=== PATIENT | male | born 1970 | race Caucasian/White ===

== ENCOUNTER 2022-02-06 10:05 | Emergency (ER) | payer BC, SELFPAY ==
[2022-02-06 10:26] VITALS: BP 147/95; PULSE 96; RESP 18; TEMP 36.6; O2SAT 95; BMI 33.2
--- NOTE | 2022-02-06 11:06 | ED.NAVMDI ---
HPI - Nausea/Vomiting/Diarrhea General Chief complaint: Diarrhea Stated complaint: poss food poisoning Time Seen by Provider: 02/06/22 10:42 History of Present Illness HPI Narrative: 51-year-old man presenting to the emergency department with concern of diarrhea and hematochezia. He believes he had a burger from [employer] 5 days ago that just did not look right. That evening then started having a great deal of diarrhea. He does have some abdominal pain and cramping actually says settled by alcohol. Pain is more in the across the upper abdomen. Diarrhea has continued 10-15 times a day with blood starting last night. Today actually forming clots in the stool. Has not limited to light food intake having had some heavy meals, meat in the interim. He is not reporting feeling lightheaded or short of breath. He has not had a fever. No exposure to illness otherwise. No recent antibiotics. Does have a history of alcohol abuse and has gone through treatment with extensive period of sobriety until he began drinking again about 6 months ago to ease some work stress. He realized more of a problem when he would go to work with a couple of beers to have at lunch. He does enjoys beer and making grilling/smoking/crafting quality food. Before was hard liquor. Describing himself as generally happy and avoiding conflict, he no longer attends AA as was not able to find a positive and peaceful group locally apparently. He would like some help with his alcohol use now. He is noting that is starting to get the shakes. Had a few beers this morning to settle things down. Denies a history of esophageal varices, or hemorrhoids. Does have a history of GERD again beer actually seems to calm this down as well. He takes a proton pump inhibitor. Other than GERD and acute issue, does not describe a longer history of bowel problems. Related Data Home Medications Medication Instructions Recorded Confirmed omeprazole 20 mg tablet,delayed 20 mg PO DAILY 02/06/22 02/06/22 release Allergies Allergy/AdvReac Type Severity Reaction Status Date / Time No Known Drug Allergies Allergy Verified 02/06/22 10:32 Review of Systems Status of ROS: Reports: 10 or more systems reviewed and unremarkable except as noted in History and below PFSH PFS Social History Smoking Status: Unknown if ever smoked How often do you have a drink containing alcohol: 2-3 times a week AUDIT-C Alcohol total score: 3 Non-prescribed substance use: denies use Exam Narrative: Exam Narrative: Very positive. Of good energy. Breathing easily. cn 2 - 12 intact. appropriately casually groomed. oropharynx hyperemic c/w nicotine use. dentition in good repair. Moving all extremities without difficulty. No extremity edema. Transitions without difficulty. no apparent tremor. Skin warm and dry. no apparent rash. Lungs are clear Cardiovascular with elevated rate. regular rhythm. no mrg Abdomen overweight with normoactive bs. Diffusely mildly tender. Const: Vital Signs, click to edit/add: Vital Signs - 24 hr 02/06/22 10:26 Temperature 97.9 F Pulse Rate [Right Pulse Oximeter] 96 Respiratory Rate 18 Blood Pressure [Le ft Upper Arm] 147/95 H Pulse Oximetry 95 Oxygen Delivery Me thod Room Air Documenting provider has reviewed patient's vital signs: yes Course Course Hospital Course: IV initiated. Normal saline. Reevaluation(s) Reevaluation #1: Stool sample collected. Appears to be a gazpacho Reevaluation #2: notes that feels better since iv hydration Vital Signs Vital signs: Initial Vital Signs Temperature 97.9 F 02/06/22 10:26 Temperature Source Temporal Artery Scan 02/06/22 10:26 Pulse Rate 96 02/06/22 10:26 Respiratory Rate 18 02/06/22 10:26 Blood Pressure 147/95 H 02/06/22 10:26 Blood Pressure Mean 112 02/06/22 10:26 Blood Pressure Position Standing 02/06/22 10:26 Pulse Oximetry 95 02/06/22 10:26 Oxygen Delivery Method 02/06/22 10:26 Vital Signs Temperature 97.9 F 02/06/22 10:26 Pulse Rate 96 02/06/22 10:26 Respiratory Rate 18 02/06/22 10:26 Blood Pressure 147/95 H 02/06/22 10:26 Pulse Oximetry 95 02/06/22 10:26 Oxygen Delivery Method 02/06/22 10:26 Temperature 97.9 F 02/06/22 13:19 Pulse Rate 72 02/06/22 13:19 Respiratory Rate 12 02/06/22 13:19 Blood Pressure 147/95 H 02/06/22 13:19 Pulse Oximetry 95 02/06/22 13:01 Oxygen Delivery Method 02/06/22 10:26 MDM - Nausea/Vomiting/Diarrhea MDM Narrative Medical decision making narrative: clearly with blood in stool. not discrete blood - mixed with stool to be foamy-pink suspect infectious enterocolitis. seems story/exam inconsistent hemorrhoidal bleed, ischemic colitis, diverticulitis. no long-term hx of bowel sxs c/w inflammatory/rheum bowel disorder. allergic? nl wbc and platelets and crp reassuring elevated transaminases c/w etoh and/or fatty liver. deferring imaging at this point. laboratory stool analysis pending Lab Data Attestation: I reviewed the patient's lab results. Labs: Lab Results 02/06/22 02/06/22 02/06/22 Range/Units 11:24 11:30 11:30 WBC 7.54 (4.50-11.00) K/uL RBC 5.10 (4.30-5.90) m/uL Hgb 15.8 (13.5-17.5) gm/dL Hct 46.4 (37.0-53.0) % MCV 91 (80-100) fL MCH 31 (26-34) pg MCHC 34 (32-36) gm/dL RDW Coeff of [place] 12.1 (11.5-15.5) % Plt Count 276 (140-440) K/uL Neut % (Auto) 68.0 (42.0-72.0) % Lymph % (Auto) 21.4 (20-44) % [place] % (Auto) 8.5 (0.0-11.0) % Eos % (Auto) 0.8 (0.0-7.0) % Baso % (Auto) 0.9 (0.0-3.0) % Neut # (Auto) 5.13 (1.7-7.0) K/uL Lymph # (Auto) 1.61 (0.90-2.90) K/uL [place] # (Auto) 0.60 (0.00-0.90) K/UL Eos # (Auto) 0.06 (0.00-0.50) K/uL Baso # (Auto) 0.07 (0.00-0.30) K/uL Abs Immat Gran (auto) 0.03 (0.00-0.30) K/uL Sodium 137 (135-149) mmol/L Potassium 4.2 (3.6-5.1) mmol/L Chloride 103 (96-114) mmol/L Carbon Dioxide 20 (20-32) mmol/L BUN 9 (5-24) mg/dL Creatinine 0.8 (0.5-1.5) mg/dL Estimated Creat Clear 122.60 Estimated GFR 108 ml/min Glucose 107 (60-115) mg/dL Calcium 9.1 (8.4-10.6) mg/dL Total Bilirubin 0.8 (0.1-1.5) mg/dL Direct Bilirubin 0.3 (0.0-0.5) mg/dL AST 97 H (12-35) U/L ALT 104 H (4-50) U/L Alkaline Phosphatase 88 (40-150) U/L C-Reactive Protein < 0.5 L (0.5-1.0) mg/dL Total Protein 8.3 (6.0-8.3) g/dL Albumin 5.1 H (3.3-5.0) g/dL Lipase 125 (23-300) U/L Stl C.difficile Tox PCR Negative (Negative) Ethyl Alcohol 0.17 H (0.01-0.03) % St C. diff Tox Epid 027 PRESUMPTIVE NEGATIVE (Negative) SARS-CoV-2 (PCR) (Negative) 02/06/22 02/06/22 Range/Units 11:30 11:30 WBC (4.50-11.00) K/uL RBC (4.30-5.90) m/uL Hgb (13.5-17.5) gm/dL Hct (37.0-53.0) % MCV (80-100) fL MCH (26-34) pg MCHC (32-36) gm/dL RDW Coeff of [place] (11.5-15.5) % Plt Count (140-440) K/uL Neut % (Auto) (42.0-72.0) % Lymph % (Auto) (20-44) % [place] % (Auto) (0.0-11.0) % Eos % (Auto) (0.0-7.0) % Baso % (Auto) (0.0-3.0) % Neut # (Auto) (1.7-7.0) K/uL Lymph # (Auto) (0.90-2.90) K/uL [place] # (Auto) (0.00-0.90) K/UL Eos # (Auto) (0.00-0.50) K/uL Baso # (Auto) (0.00-0.30) K/uL Abs Immat Gran (auto) (0.00-0.30) K/uL Sodium (135-149) mmol/L Potassium (3.6-5.1) mmol/L Chloride (96-114) mmol/L Carbon Dioxide (20-32) mmol/L BUN (5-24) mg/dL Creatinine (0.5-1.5) mg/dL Estimated Creat Clear Estimated GFR ml/min Glucose (60-115) mg/dL Calcium (8.4-10.6) mg/dL Total Bilirubin Cancelled (0.1-1.5) mg/dL Direct Bilirubin Cancelled (0.0-0.5) mg/dL AST Cancelled (12-35) U/L ALT Cancelled (4-50) U/L Alkaline Phosphatase Cancelled (40-150) U/L C-Reactive Protein (0.5-1.0) mg/dL Total Protein Cancelled (6.0-8.3) g/dL Albumin Cancelled (3.3-5.0) g/dL Lipase Cancelled (23-300) U/L Stl C.difficile Tox PCR (Negative) Ethyl Alcohol (0.01-0.03) % St C. diff Tox Epid 027 (Negative) SARS-CoV-2 (PCR) Negative SARS-CoV-2 (Negative) Discharge Plan Discharge Clinical Impression: Alcohol abuse, Colitis, Enteritis Patient Disposition: Home w/ Parent or Adult Condition: Improved Additional Instructions: Focus on hydration... the good kind. I am afraid just clear liquids for the next 36-48 hours. Diluted juices, broths. Then advance to bland foods like rice and toast. In the meantime you can plan an amazing menu for when you are feeling better. One day at a time. Consider reaching out again to AA. Perhaps things have changed. There must be a functional group in the community. There are usually so many options. Try to schedule followup in primary care to discuss your anxiety. Might be good to establish care with a therapist as well. We will call you if any of these labs go positive and/or require treatment. Return for marked increase in persistent pain, intractable vomiting, increasing bleeding, associated fever. Be seen for symptoms lasting another 4 days or so. I hope you have a great football season. Prescriptions for ondansetron and propranolol. Prescriptions: No Action omeprazole 20 mg tablet,delayed release (DR/EC) 20 mg PO DAILY Follow Up/Referrals: Provider,Not a Local [Primary Care Provider] - Stand Alone Forms: [employer] Info Instructions
[2022-02-06] MEDS: 0.9 % SODIUM CHLORIDE 1000 ml 1,000 ML IV (11:35)
[2022-02-06 11:42] LABS: Basophils Absolute Auto 0.07 K/uL (0.00-0.30); Basophils Percent Auto 0.9 % (0.0-3.0); Eosinophils Absolute Auto 0.06 K/uL (0.00-0.50); Eosinophils Percent Auto 0.8 % (0.0-7.0); Hematocrit 46.4 % (37.0-53.0); Hemoglobin* 15.8 gm/dL (13.5-17.5); Immature Granulocytes Abs Auto 0.03 K/uL (0.00-0.30); Lymphocytes Absolute Auto 1.61 K/uL (0.90-2.90); Lymphocytes Percent Auto 21.4 % (20-44); Mean Corpuscular HGB Conc 34 gm/dL (32-36); Mean Corpuscular Hemoglobin 31 pg (26-34); Mean Corpuscular Volume 91 fL (80-100); Monocytes Percent Auto 8.5 % (0.0-11.0); Neutrophils Absolute Auto 5.13 K/uL (1.7-7.0); Platelet Count* 276 K/uL (140-440); RDW Coefficient of Variation % 12.1 % (11.5-15.5); White Blood Count* 7.54 K/uL (4.50-11.00)
[2022-02-06 11:45] LABS: Slide Review Reflex No
[2022-02-06 11:58] LABS: Albumin* 5.1 g/dL (3.3-5.0); Chloride* 103 mmol/L (96-114); Sodium* 137 mmol/L (135-149)
[2022-02-06 11:59] LABS: Potassium* 4.2 mmol/L (3.6-5.1)
[2022-02-06 12:01] LABS: Creatinine* 0.8 mg/dL (0.5-1.5); Estimated Glomerular Filt Rate 108 ml/min; Ethanol* 0.17 % (0.01-0.03)
[2022-02-06 12:02] LABS: Alkaline Phosphatase* 88 U/L (40-150); Aspartate Amino Transferase* 97 U/L (12-35); Bilirubin Direct* 0.3 mg/dL (0.0-0.5); Bilirubin Total* 0.8 mg/dL (0.1-1.5); Blood Urea Nitrogen* 9 mg/dL (5-24); Calcium* 9.1 mg/dL (8.4-10.6); Carbon Dioxide* 20 mmol/L (20-32); Glucose* 107 mg/dL (60-115); Lipase* 125 U/L (23-300); Total Protein* 8.3 g/dL (6.0-8.3)
[2022-02-06 12:03] LABS: Alanine Aminotransferase* 104 U/L (4-50)
[2022-02-06 12:05] LABS: C Reactive Protein* < 0.5 mg/dL (0.5-1.0)
[2022-02-06 12:28] LABS: C.Difficile Negative (Negative); CDIFFEPI 027 PRESUMPTIVE NEGATIVE (Negative)
[2022-02-06 12:29] LABS: SARS PCR* Negative SARS-CoV-2 (Negative)
[2022-02-06 13:01] VITALS: PULSE 72; RESP 12; O2SAT 95
[2022-02-06 13:19] VITALS: BP 147/95; PULSE 72; RESP 12; TEMP 36.6
[2022-02-14 00:31] LABS: Ova and Parasite, Fecal Negative (Negative)
== END 2022-02-06 13:20 | disposition home or self-care (01) ==
PROVIDERS: Emergency Provider Family Medicine
DX: K52.9 Noninfective gastroenteritis and colitis, unspecified (principal); F10.10 Alcohol abuse, uncomplicated
CPT/HCPCS: 36415; 80048; 80076; 82077; 83690; 85025; 86140; 87045; 87046; 87177; 87209; 87427; 87493; 87635; 96360; 99284; J7030

== ENCOUNTER 2022-06-05 07:56 | Emergency (ER) | payer BC, SELFPAY ==
[2022-06-05 08:17] VITALS: BP 161/85; RESP 20; TEMP 36.4; O2SAT 96; BMI 32.5
--- NOTE | 2022-06-05 08:31 | ED.GENADULT ---
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 Patient reports he has had some shakiness this morning took a couple shots of peach alcohol and feels better. He has not had alcohol withdrawal seizures, not been hospitalized for withdrawal. He is ready to stop drinking. He has no other significant health problems. He is on no medications. Not allergic to any medicine. Ambulates into the ER. Related Data Home Medications Medication Instructions Recorded Confirmed omeprazole 20 mg tablet,delayed 20 mg PO DAILY 02/06/22 02/06/22 release Previous Rx's Medication Instructions Recorded lorazepam 0.5 mg tablet (Ativan) 0.5 mg PO TID PRN #10 tabs 06/05/22 Allergies Allergy/AdvReac Type Severity Reaction Status Date / Time No Known Drug Allergies Allergy Verified 02/06/22 10:32 Review of Systems Status of ROS: Reports: 6 or more systems reviewed and unremarkable except as noted in History and below [facility] Social History Smoking Status: Former smoker What tobacco products do you use: cigarettes Do you use any of these nicotine containing products: None Second hand tobacco smoke exposure: No How often do you have a drink containing alcohol: 4 or more times a week How many standard drinks containing alcohol do you have on a typical day: 10 or more How often do you have six or more drinks on one occasion: Daily or almost daily AUDIT-C Alcohol total score: 12 Non-prescribed substance use: denies use Exam Narrative: Exam Narrative: Objective vital signs unremarkable and slightly elevated blood pressure Alert orient x3, no distress, does not smell of alcohol Heart rhythm regular without murmur, HEENT unremarkable neck is supple Chest is clear Abdomen benign soft nontender Extremities are no edema Neurologic nonfocal good peripheral perfusion noted. Const: Vital Signs, click to edit/add: Vital Signs - 24 hr 06/05/22 08:17 06/05/22 09:11 06/05/22 09:13 Temperature 97.6 F Pulse Rate 90 86 Respiratory Rate 20 16 Blood Pressure 148/87 H Blood Pressure [Ri ght Upper Arm] 161/85 H Pulse Oximetry 96 95 96 Oxygen Delivery Me thod Room Air Course Vital Signs Vital signs: Initial Vital Signs Temperature 97.6 F 06/05/22 08:17 Temperature Source Temporal Artery Scan 06/05/22 08:17 Respiratory Rate 20 06/05/22 08:17 Blood Pressure 161/85 H 06/05/22 08:17 Blood Pressure Mean 110 06/05/22 08:17 Blood Pressure Position Sitting 06/05/22 08:17 Pulse Oximetry 96 06/05/22 08:17 Oxygen Delivery Method 06/05/22 08:17 Vital Signs Temperature 97.6 F 06/05/22 08:17 Respiratory Rate 20 06/05/22 08:17 Blood Pressure 161/85 H 06/05/22 08:17 Pulse Oximetry 96 06/05/22 08:17 Oxygen Delivery Method 06/05/22 08:17 Temperature 97.6 F 06/05/22 08:17 Pulse Rate 86 06/05/22 09:31 Respiratory Rate 16 06/05/22 09:13 Blood Pressure 148/88 H 06/05/22 09:31 Pulse Oximetry 96 06/05/22 09:31 Oxygen Delivery Method 06/05/22 08:17 Medical Decision Making MDM Narrative Medical decision making narrative: Patient has had fairly heavy alcohol use for quite some time. He feels ready to stop drinking. Will make a social service consult to get a referral for a rule assessment on him to see if he has inpatient qualified. Will give him Ativan IV now and IV fluid as he appears mildly dehydrated. Will check his laboratory studies. Disposition pending social Service recommendations. The patient did report he had some thoughts of self-harm today earlier but did not feel that way now, he does not feel like he is at danger to himself at this time. Addendum: The patient feels much better after his fluids and Ativan he has a ride home, he feels ready to participate in the process the social service coordinator has met with him about. He feels safe to go home. Ativan for home for couple days would be reasonable as needed. Stop alcohol, follow-up for social service consult as described for assessment of inpatient chemical dependency needs. Return to ED as needed. Lab Data Labs: Lab Results 06/05/22 06/05/22 Range/Units 08:55 08:55 WBC 8.63 (4.50-11.00) K/uL RBC 4.95 (4.30-5.90) m/uL Hgb 15.3 (13.5-17.5) gm/dL Hct 45.3 (37.0-53.0) % MCV 92 (80-100) fL MCH 31 (26-34) pg MCHC 34 (32-36) gm/dL RDW Coeff of [place] 12.2 (11.5-15.5) % Plt Count 254 (140-440) K/uL Neut % (Auto) 82.8 H (42.0-72.0) % Lymph % (Auto) 9.6 L (20-44) % [place] % (Auto) 5.9 (0.0-11.0) % Eos % (Auto) 0.9 (0.0-7.0) % Baso % (Auto) 0.6 (0.0-3.0) % Neut # (Auto) 7.10 H (1.7-7.0) K/uL Lymph # (Auto) 0.80 L (0.90-2.90) K/uL [place] # (Auto) 0.50 (0.00-0.90) K/UL Eos # (Auto) 0.08 (0.00-0.50) K/uL Baso # (Auto) 0.05 (0.00-0.30) K/uL Sodium 137 (135-149) mmol/L Potassium 3.8 (3.6-5.1) mmol/L Chloride 103 (96-114) mmol/L Carbon Dioxide 18 L (20-32) mmol/L BUN 8 (5-24) mg/dL Creatinine 0.7 (0.5-1.5) mg/dL Estimated Creat Clear 140.11 Estimated GFR 113 ml/min Glucose 152 H (60-115) mg/dL Calcium 9.1 (8.4-10.6) mg/dL Total Bilirubin 0.7 (0.1-1.5) mg/dL Direct Bilirubin 0.3 (0.0-0.5) mg/dL AST 50 H (12-35) U/L ALT 73 H (4-50) U/L Alkaline Phosphatase 86 (40-150) U/L Total Protein 7.9 (6.0-8.3) g/dL Albumin 4.9 (3.3-5.0) g/dL Ethyl Alcohol 0.04 H (0.01-0.03) % Discharge Plan Discharge Clinical Impression: Acute alcoholism Patient Disposition: Home w/ Parent or Adult Condition: Improved Additional Instructions: Light activity, fluids, stop alcohol, follow-up with recommendations of social Service, return to ED as needed. Ativan 0.5 mg t.i.d. p.r.n. over the next couple of days. Return if worsening changes or concerns. Activity Level: Light activity Discharge Diet: Regular Prescriptions: New lorazepam [Ativan] 0.5 mg tablet 0.5 mg PO TID PRNQty: 10 0RF No Action omeprazole 20 mg tablet,delayed release (DR/EC) 20 mg PO DAILY Follow Up/Referrals: Provider,Not a Local [Primary Care Provider] - Stand Alone Forms: [employer] Info Instructions
[2022-06-05 09:02] LABS: Basophils Absolute Auto 0.05 K/uL (0.00-0.30); Basophils Percent Auto 0.6 % (0.0-3.0); Eosinophils Absolute Auto 0.08 K/uL (0.00-0.50); Eosinophils Percent Auto 0.9 % (0.0-7.0); Hematocrit 45.3 % (37.0-53.0); Hemoglobin* 15.3 gm/dL (13.5-17.5); Immature Granulocytes Abs Auto 0.02 K/uL (0.00-0.30); Immature Granulocytes Pct Auto 0.2 %; Lymphocytes Percent Auto 9.6 % (20-44); Mean Corpuscular HGB Conc 34 gm/dL (32-36); Mean Corpuscular Hemoglobin 31 pg (26-34); Mean Corpuscular Volume 92 fL (80-100); Monocytes Percent Auto 5.9 % (0.0-11.0); Neutrophils Percent Auto 82.8 % (42.0-72.0); Platelet Count* 254 K/uL (140-440); RDW Coefficient of Variation % 12.2 % (11.5-15.5); Red Blood Count 4.95 m/uL (4.30-5.90); White Blood Count* 8.63 K/uL (4.50-11.00)
[2022-06-05] MEDS: LORazepam 2 MG/ML inj 1 MG IVP (09:08)
[2022-06-05] MEDS: 0.9 % SODIUM CHLORIDE 1000 ml 1,000 ML 6000 ML IV (09:08)
[2022-06-05 09:11] VITALS: PULSE 90; O2SAT 95
[2022-06-05 09:13] VITALS: BP 148/87; PULSE 86; RESP 16; O2SAT 96
[2022-06-05 09:14] VITALS: PULSE 84; O2SAT 95
[2022-06-05 09:17] LABS: Slide Review Reflex No
[2022-06-05 09:30] VITALS: PULSE 90; O2SAT 96
[2022-06-05 09:31] VITALS: BP 148/88; PULSE 86; O2SAT 96
[2022-06-05 09:32] LABS: Albumin* 4.9 g/dL (3.3-5.0); Chloride* 103 mmol/L (96-114); Sodium* 137 mmol/L (135-149)
[2022-06-05 09:33] LABS: Potassium* 3.8 mmol/L (3.6-5.1)
--- NOTE | 2022-06-05 09:34 | PC.SOCIAL ---
Met with pt in room and discussed current situation. Provided pt with local treatment options for outpatient and inpatient. Discussed Rule 25 services and detox services. Pt is familiar with the local outpatient facility in [place] that was provided and will reach out to them. Informed pt that pt should call pt's medical insurance provider to get a list of chemical health treatment centers that are covered under insurance policy. Informed pt if he has any further questions he may reach out to the social work department.
[2022-06-05 09:35] LABS: Aspartate Amino Transferase* 50 U/L (12-35); Bilirubin Direct* 0.3 mg/dL (0.0-0.5); Bilirubin Total* 0.7 mg/dL (0.1-1.5); Blood Urea Nitrogen* 8 mg/dL (5-24); Carbon Dioxide* 18 mmol/L (20-32); Creatinine* 0.7 mg/dL (0.5-1.5); Est. Creatinine Clearance* 140.11; Estimated Glomerular Filt Rate 113 ml/min; Glucose* 152 mg/dL (60-115); Total Protein* 7.9 g/dL (6.0-8.3)
[2022-06-05 09:36] LABS: Alanine Aminotransferase* 73 U/L (4-50); Alkaline Phosphatase* 86 U/L (40-150); Calcium* 9.1 mg/dL (8.4-10.6); Ethanol* 0.04 % (0.01-0.03)
--- NOTE | 2022-06-05 10:10 | ED.NURSE ---
Patient stated that [employer] had met with him prior to discharge and he was provided with services to utilize. Patient understood discharge instructions.
== END 2022-06-05 10:00 | disposition home or self-care (01) ==
PROVIDERS: Emergency Provider Family Medicine
DX: F10.129 Alcohol abuse with intoxication, unspecified (principal)
CPT/HCPCS: 36415; 80048; 80076; 82077; 85025; 87426; 96374; 99284; J2060; J7030